=== PATIENT | female | born 1990 | race African-American/Black ===

== ENCOUNTER 2024-03-03 08:00 | Emergency (ER) | payer MEDICAID, OTHER ==
[~2024-03-03] VITALS: Ht 167.6 cm; Wt 61.2 kg
[2024-03-03 08:08] VITALS: O2SAT 99
[2024-03-03] MEDS ORDERED: AMOX-494 MT (09:40)
[2024-03-03] MEDS ORDERED: BENZ1LOZ73 MT (09:40)
[2024-03-03] MEDS: KETOROLAC 30MG/ML VIAL IM ONE (09:45)
[2024-03-03] MEDS: DEXAMETHASONE 10 MG/ML VIAL PO ONE (09:46)
[2024-03-03 10:21] VITALS: BP 160/100; PULSE 69; RESP 18; TEMP 98.7
== END 2024-03-03 10:28 | disposition home or self-care (01) ==
LOC: ER 08:00
DX: J02.9 Acute pharyngitis, unspecified (principal); H66.002 Acute suppurative otitis media without spontaneous rupture of ear drum, left ear
CPT/HCPCS: 99283; 96372; J1100; J1885